=== PATIENT | male | born 1940 | race Caucasian/White ===

== ENCOUNTER 2025-03-24 03:03 | Observation (INO) | payer MEDICARE, SELFPAY ==
[2025-03-24] VITALS (7 sets, daily range): BP systolic 125–164; BP diastolic 68–92; BMI 31.1; BMI 30.6
[2025-03-24 01:15] LABS: Hematocrit 44.4 % (39.0-52.0); Hemoglobin 14.7 g/dL (13.0-18.0); Mean Corp Hgb Conc. 33.1 g/dL (33.0-37.0); Mean Corpuscular Volume 85.1 fL (80.0-94.0); Nucleated Red Blood Cells % 0 % (-); Platelet Count 242 10^3/uL (130-400); Red Cell Dist. Width 13.1 % (11.5-14.5)
[2025-03-24 01:44] LABS: Troponin I 0.013 ng/ml
[2025-03-24 01:46] LABS: ALT (SGPT) 22 U/L (0-50); AST (SGOT) 26 U/L (17-59); Albumin 4.3 g/dl (3.5-5.0); Alkaline Phosphatase 71 U/L (38-126); Blood Urea Nitrogen 20 mg/dl (9-20); Calcium 9.8 mg/dl (8.4-10.2); Carbon Dioxide 23 mmol/L (22-30); Chloride 104 mmol/L (98-107); Estimated Creatinine Clearance 65 ml/min; Glucose 142 mg/dl (70-99); Potassium 4.2 mmol/L (3.5-5.1); Sodium 135 mmol/L (135-145); Total Protein 7.0 g/dl (6.3-8.2); eGFR > 60.00
--- NOTE | 2025-03-24 01:55 | ED.GENMED ---
History of Present Illness
General
Chief Complaint: Heart Rate Problem
Source: patient, spouse and family
Exam Limitations: none
Time Seen by Provider: 03/24/25 01:10
Nursing documentation reviewed up to this point in time: agreed with
History of Present Illness
History of Present Illness:
Note:
CHIEF COMPLAINT(S)
Atrial fibrillation and abdominal pain.
HISTORY OF PRESENT ILLNESS
An 84-year-old male presented to the emergency department with a known history of atrial fibrillation. The patient reported a sensation of illness in his stomach and described feeling abnormal. He is not currently on any anticoagulant therapy, such
as Apixaban or Rivaroxaban, which are standard in managing atrial fibrillation to prevent thromboembolic events. The patient cannot recall the duration of his current atrial fibrillation episode and mentioned having previously undergone electrical
cardioversion about nine years ago. The absence of anticoagulation and the uncertainty regarding the onset of this episode raise concerns about the potential presence of a thrombus formation in the heart.
In addition to the atrial fibrillation, the patient reported abdominal pain that began immediately after consuming clams with spaghetti. The abdominal discomfort was described as significant, prompting further investigation.
PAST MEDICAL AND SURIGICAL HISTORY
The patient no longer has a gallbladder.
CHRONIC MEDICAL CONDITIONS SIGNIFICANTLY AFFECTING CARE
Atrial fibrillation.
PLAN
1. Admit the patient for further evaluation and management.
2. Perform a transesophageal echocardiogram (INA) to evaluate for the presence of intracardiac thrombi.
3. Initiate anticoagulation therapy following INA results and potential cardioversion if no thrombus is found.
4. Conduct blood work and imaging to investigate the cause of abdominal pain.
5. Test for influenza and COVID-19 due to associated respiratory symptoms.
6. Prepare the patient for an overnight stay with discharge contingent on procedural outcomes and holiday staffing schedules.
DIFFERENTIAL DIAGNOSIS
The Differential Diagnosis includes, in no particular order and is not limited to:
1. Thromboembolism secondary to atrial fibrillation
2. Gallstones in bile ducts
3. Acute gastritis from recent dietary intake
4. Food poisoning
5. Gastroenteritis
6. Viral upper respiratory infection
7. COVID-19
8. Peptic ulcer disease
9. Biliary colic
10. Pancreatitis
REVIEW OF SYSTEMS
- Cardiovascular: Atrial fibrillation, not on anticoagulation.
- Gastrointestinal: Abdominal pain following seafood ingestion.
- Respiratory: Sore throat and body aches.
PHYSICAL EXAM
General: Alert, no acute distress.
Skin: Warm, dry.
Head: Normocephalic, atraumatic.
Neck: Supple, trachea midline.
Eye, ears, nose, mouth, and throat: Oral mucosa moist.
Cardiovascular: Normal peripheral perfusion, No edema. Irregularly irregular rate and rhythm consistent.
Respiratory: Respirations are non-labored.
Gastrointestinal: Abdomen nondistended. Slight tenderness to palpation in the epigastric region
Back: Normal range of motion, Normal alignment.
Musculoskeletal: Normal ROM, normal strength.
Neurological: Alert and oriented to person, place, time, and situation, No focal neurological deficit observed.
Psychiatric: Cooperative, appropriate mood & affect.
Disposition:
SUMMARY OF ENCOUNTER
An 84-year-old male with a known history of atrial fibrillation (AF) presented to the emergency department with complaints of palpitations. The patient is visiting from [place] and is unsure when his current episode of AF began. The patient is not
on anticoagulant therapy but is currently taking verapamil. Given the absence of anticoagulation and uncertainty about the onset of this episode, there is a concern for potential thrombus formation. The patient will be admitted for further
evaluation, including a potential transesophageal echocardiogram (INA) and cardioversion, as needed.
DISPOSITION
Admit.
ASSESSMENT
The patient is experiencing symptoms of atrial fibrillation without anticoagulation, raising concerns about thromboembolic risks. Further evaluation and management in the hospital setting are justified.
PLAN
1. Admit the patient for further evaluation and management.
2. Consider performing a transesophageal echocardiogram (INA) to evaluate for intracardiac thrombi.
3. Initiate anticoagulation therapy following INA results and consider cardioversion if no thrombus is detected.
4. Further work-up and management will be conducted during hospitalization.
MEDICAL DECISION MAKING
-Chronic conditions affecting care: Atrial fibrillation.
-Data:
Category 1
Outpatient medication records indicate usage of verapamil.
-Risk:
Decisions regarding the initiation of anticoagulation therapy were made, considering the potential thromboembolic complications associated with atrial fibrillation. The decision to admit the patient for further evaluation and potential procedures
like INA and cardioversion represents an escalation of care.
DIAGNOSIS
1. Atrial Fibrillation [I48.91]
Phy Exam
Physical Exam
Physical Exam:
.
Course
Orders/Labs/Results
Orders:
Orders
03/24/25 00:39
ECG [Electrocardiogram (*1)] Urgent
Reason for Study: Palpitations
EKG- Treatment ONCE
03/24/25 01:02
Complete Blood Count/With Diff Urgent
Comprehensive Metabolic Panel Urgent
Troponin I Urgent
03/24/25 01:36
COVID-19 Antigen Urgent
Source: Nasal Swab
Influenza A+B Rapid Molecular Urgent
SUPA Source: Nasal Swab
Specimen Description:
03/24/25 02:55
Admit/Transfer Patient As Directed
Co-Sign Provider:
Level of Care: Observation services
Assign to:: Telemetry
Physician / Group: Stan
Diagnosis: atrial fibrillation
Reason for Telemetry: Medication for Arrhythmia
Date to Stop Telemetry: 03/26/25
Time to Stop Telemetry: 11:00
Code Status As Directed
Resuscitation Status: Full Code
PRN Pain Medication Management As Directed
May give lesser potent ordered pain med per pt: Yes
preference::
Protocol:: Medication orders for pain may be administered in a
manner that supports deferring to patient preference
when the pt is:
- Requesting an ordered lesser potent pain medication.
Least to most potent pain medications are defined
as: acetaminophen < NSAID < tramadol < opioids
(morphine, oxycodone, hydromorphone).
- Requesting a lesser dose of the same medication IF
ORDERED.
- Requesting a less intrusive route of administration
if both routes are prescribed by the provider (PO <
IV).
03/24/25 04:05
Acetaminophen [Tylenol] 650 mg PO Q6HPRN PRN
Metoprolol [Lopressor] 5 mg IV Q6HPRN PRN
Ondansetron Injectable [Zofran] 4 mg IV Q6HPRN PRN
03/24/25 04:05
Echo 2D MMode Color/Doppler Routine
Reason for Study: heart failure
CARDIOLOGY CONSULT Routine
Consulting Provider: Fito Suggs
Was physician already notified: No
Reason for consult: symptomatic afib, not rapid
Consult Notification Routine
Specialty to Notify: Cardiology
Date consulting provider notified: 03/24/25
Time consulting provider notified: 07:47
Notified:: Provider
Comment: tt
VTE Contraindication Routine
VTE Mechanical Device Contraindication: Medical Contraindication
Pharmocologic Contraindication: Medical Contraindication
Activity As Directed
Activity Level: With Assistance
Intake/ Output As Directed
Frequency: Per unit guidelines
Patient Education As Directed
Type: CHF folder
Comment: give on admission. Document in Interdisciplinary Education record
Sleep Apnea Assessment by RN As Directed
Comment:
Physician Instructions:
Vital Signs As Directed
Frequency: Other
Additional Instructions:: Q12 or per unit guidelines if more frequent.
Weight As Directed
Frequency: Daily
Type of Scale: Standing Scale
Comment: Daily morning weight. If unable to stand, use balanced bed scale.
Weight As Directed
Frequency: Once
Type of Scale: Standing Scale
Comment: Upon Admission. If unable to stand, use balanced bed scale.
CR Chest - 2 Views Routine
Comment:
Reason For Exam: afib
Pulse Ox/cont/shift [RESP] Routine
Quantity: 1
Special Instructions: Daily pulse oximetry at rest. If greater than 92% at rest also obtain pulse oximetry
while ambulating as tolerated.
03/24/25 Breakfast
Cholesterol Lowering
At Your Request: Full Participation
Does patient need a safe tray?: No
Cholesterol Lowering: Sodium, 2 Gram
03/24/25 08:00
Apixaban [Eliquis] 5 mg PO BID
Bupropion Regular Release [Wellbutrin Regular Release] 150 mg PO DAILY
Verapamil [Calan] 120 mg PO DAILY
03/24/25 08:27
Basic Metabolic Panel IN AM
Cardiovascular Evaluation IN AM
Magnesium IN AM
NT-proBNP IN AM
TSH Reflex To Free T4 IN AM
03/26/25 11:00
DC Protocol for Telemetry ONCE
Abnormal Lab Results
03/24/25
01:02
Abs Immat Gran (auto) 0.1 H 10^3/uL
(0-0.05)
Absolute Neuts (auto) 9.0 H 10^3/uL
(1.4-6.5)
Absolute Lymphs (auto) 0.5 L 10^3/uL
(1.2-3.4)
Absolute Monos (auto) 1.1 H 10^3/uL
(0.1-0.6)
Neutrophils % 83.7 H %
(42.2-75.2)
Lymphocytes % 4.6 L %
(20.5-51.1)
Monocytes % 9.9 H %
(1.7-9.3)
Glucose 142 H mg/dl
(70-99)
03/24/25 01:02
03/24/25 01:02
Vital Signs
Initial and Last Documented VS:
Initial Vital Signs
Temp Pulse Resp BP Pulse Ox
98.7 F 92 20 159/88 96
03/24/25 00:36 03/24/25 00:36 03/24/25 00:36 03/24/25 00:36 03/24/25 00:36
Last Documented Vital Signs
Temp Pulse Resp BP Pulse Ox
99.4 F 62 16 133/68 95
03/24/25 11:55 03/24/25 11:55 03/24/25 11:55 03/24/25 11:55 03/24/25 12:57
*Pulse Oximetry
SaO2: 95
Oxygen Mode of Delivery: Room air
Patient hypoxic: no
*Critical Care Note
Total Time (30-74mins, 75-104mins- exclusive of procedures): Not Applicable
ED Attending Note
-
Portions of this chart may have been created with voice recognition software.� Occasional wrong word or��sound alike� substitutions may have occurred due to the inherent limitations of voice recognition software.
Discharge Plan
Departure
Patient Disposition: Admit
Date of Disposition: 03/24/25
Time of Disposition: 02:00
Admit to: Telemetry
Presentation/result/management discussed w/ accepting MD/DO: Hospitalist
Condition: Fair
Discharge Problem:
A-fib, Palpitations
Interventions
Interventions:
*General Assessment Last Done: 03/24/25 00:58
*Neglect/Abuse Screening Last Done: 03/24/25 00:36
*ED COVID-19 Vaccine History Last Done: 03/24/25 00:58
*ED Influenza Vaccine History Last Done: 03/24/25 00:58
[facility] Risk Assessment Tool Last Done: 03/24/25 00:57
*Risk Screen - Suicide (C-SSRS) Last Done: 03/24/25 00:59
*Nursing Disposition Last Done: 03/24/25 04:11
ED- Cardiac Assessment Last Done: 03/24/25 00:59
ED- Pulmonary Assessment Last Done: 03/24/25 00:59
Discharge Date and Time
Discharge Date/Time: 03/24/25 04:11
[2025-03-24 02:00] LABS: COVID-19 Antigen Negative (Negative)
--- NOTE | 2025-03-24 02:45 | HPS.HSE ---
Family Physician
-
Family Physician: * NONE
Chief Complaint
-
Her palpitations
History of Present Illness
Patient is a 84-year-old male with past medical history significant for possible atrial fibrillation, BPH status post TURP and anxiety who presents to the emergency department with sensation of palpitations since lunchtime yesterday.
Patient reported that for about the last 24 hours he has not been feeling quite well. After lunch he reports some abdominal pain and nausea. At around the same time started noticing palpitations which is similar to his prior episodes of
palpitations when he was found to be in atrial fibrillation. He thought he is now come back into atrial fibrillation. Patient reported that the last time he was in atrial fibrillation was 8 years ago. At that time he required cardioversion. He
has been on verapamil but is not on any anticoagulation. He denies any episodes of palpitations since then. He says the palpitations now when not as violent as the one that he had previously. He denies any associated lightheadedness or dizziness.
He does report mild dyspnea and chest pain. He reports some mild flulike illness as well but no fevers or chills. He denies any cough. Denies any nasal congestion. He reports compliance with his medications. When he checked his pulse at home
with the palpitations his rate was in the 90s. He denies any urinary symptoms.
In the emergency department he was afebrile, blood pressure was 160/92 with a pulse rate of 94 and oxygen saturation of 98% on room air. ECG shows atrial fibrillation at a rate of 94. Troponin was 0.013. COVID test was negative, flu test was
negative.
White count was 10.8 hemoglobin and platelets were normal. Electrolytes BUN/creatinine were normal.
Medical History
Past Medical History
Past Medical History: Reports Arrhythmia (Status post elevation), Psychiatric and Other (BPH status post TURP)
Past Surgical History: Reports Appendectomy, Cholecystectomy and Urological (TURP)
Social History
Tobacco: Non-smoker
Alcohol: None
Drug: None
Personal:
Living: With Family
Family History
Family History: Not pertinent
Allergies / Home Medications
Allergies reflects when Allergies were last updated in [facility].
Home Medications with original date entered in [facility]
Allergy/Medication List:
Allergies
Allergy/AdvReac Type Severity Reaction Status Date / Time
No Known Allergies Allergy Unverified 03/24/25 00:36
Home Medications
bupropion HCl 75 mg tablet 150 mg PO DAILY 03/24/25
verapamil 120 mg tablet 120 mg PO DAILY 03/24/25
Review of Systems
-
Constitutional: Reports No Symptoms
EENT: Reports No Symptoms
Respiratory: Reports No Symptoms
Cardiac: Reports Palpitations
Abdomen/GI: Reports No Symptoms
: Reports No Symptoms
Musculoskeletal: Reports No Symptoms
Skin: Reports No Symptoms
Neurological: Reports No Symptoms
Endocrine: Reports No Symptoms
Hematologic/Lymphatic: Reports No Symptoms
Psych: Reports No Symptoms
Physical Exam
Vital Signs
Vital Signs
Temp Pulse Resp BP Pulse Ox
98.7 F 92 24 137/85 94
03/24/25 00:36 03/24/25 02:30 03/24/25 02:30 03/24/25 02:00 03/24/25 02:30
Physical Exam
General: Well Developed, Well Nourished and No Apparent Distress
HEENT: NormoCephalic, Moist mucous membranes and Atraumatic
Respiratory: Clear
Cardiac: S1/S2 and Regular Rhythm; No Murmur or Rub
GI: Soft, Non Tender, Non Distended and Normal Bowel Sounds; No Organomegaly
Rectal: Deferred by Provider
Musculoskeletal: No Clubbing, No Cyanosis and No Edema
Skin: No Rash
Neuro: Nonfocal/grossly intact
Laboratory Results
-
03/24/25 01:02
03/24/25 01:02
Laboratory Results
Total Bilirubin 1.0 mg/dl (0.2-1.3) 03/24/25 01:02
AST 26 U/L (17-59) 03/24/25 01:02
ALT 22 U/L (0-50) 03/24/25 01:02
Alkaline Phosphatase 71 U/L (38-126) 03/24/25 01:02
Troponin I 0.013 ng/ml 03/24/25 01:02
Data Reviewed
-
Medical Tests (Nuc Med, Echo, EKG etc): Image Personally Visualized and interpreted
Lab Data: Labs Reviewed by me
Old Records: Reviewed
Impression/Plan
-
IMPRESSION:
84-year-old male with past medical history of prostate atrial fibrillation status post cardioversion 8 years ago and he has been in a normal sinus rhythm according to him since then maintained on verapamil daily who presents to Emergency Department
with palpitations after an episode of nausea and abdominal discomfort after lunch. He reports that he feels the palpitation with slight chest discomfort and felt like it was not normal. He denies feeling dizzy or lightheaded. He denies any chest
pain or dyspnea. He reports that in the past when he had the atrial fibrillation on it was rapid in the 130s to 140s and required cardioversion after 3 days in the hospital on medications. He is not currently anticoagulated and has never been on
anticoagulation according to him.
PLAN:
Atrial fibrillation�patient in A-fib not rapid. But symptomatic. It appears that patient is usually in sinus rhythm and cannot feel when he is in A-fib even though the rate is less than 100. He is otherwise hemodynamically stable, afebrile, has
normal troponin and no signs of ischemia on his ECG. He is slightly hypertensive. Labs are unremarkable.
� Admit to telemetry observation
� Patient CHADS2 score is 2, missed criteria for anticoagulation
� Given that the patient has not been on anticoagulation, very reluctant to statin medication that we will convert him therefore we will continue with therapy for now since he is rate controlled
� Will start anticoagulation with Eliquis and monitor
� Echocardiogram in a.m.
� Continue verapamil as stated above
� Cardiology consultation
� DVT prophylaxis�on apixaban now
� CODE STATUS full code
--- NOTE | 2025-03-24 04:20 | PTCARENOTE ---
Pt arrived to room 416-01 from ED, ambulates independently. VSS, AAOx3, call travis in reach.
--- NOTE | 2025-03-24 08:08 | CON.CAR ---
Addendum entered and electronically signed by Fito Suggs MD 03/24/25 09:41:
I saw and examined the patient.
The Deputy Chief Counsel's note was reviewed and I agree with the note.
Comment: Briefly, 84-year-old man with remote history of atrial fibrillation who presented yesterday with palpitations found to be in rate controlled atrial fibrillation. Patient is not chronically on anticoagulation has not followed regularly with
a service planner. Currently visiting his daughter in [place] but usually splits his time between [place] and [place].
Overall tells me he feels well today
A-fib/flutter is rate controlled on review of telemetry
No evidence of decompensated heart failure based on history or physical exam
Agree with discharge on Eliquis for risk reduction cardioembolic stroke
Would increase home verapamil to 120 mg twice daily for tighter rate control of A-fib
For completeness we will check echo
Tentative plan for discharge later today
Encouraged him to follow-up with his primary care doctor on his return to [place] and establish with a service planner there as well
Original Note:
Consultation
Consultation Request
Date/Time Consultation Requested: 03/24/2025
Date/Time Consultation Performed: 03/24/2025
Requesting Provider: Dr. Pierce
Performing Provider: Shireen Arciniega PA-C for Dr. Suggs
Reason for Consultation: Atrial fibrillation
Medical History
-
History of Present Illness:
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
palpitations and nausea/abdominal pain. Patient reports he is visiting his daughter locally from [place]. Several days ago he started noting URI symptoms with postnasal drip and cough. Yesterday he had spaghetti with clams for and later that
evening he started to feel queasy with mild abdominal pain. Last evening when he went to bed he noted palpitations reminiscent of his prior atrial fibrillation so he decided to come to emergency department. Patient has history of paroxysmal atrial
fibrillation and had prior cardioversion 9 years ago. He reports he does not routinely follow with service planner. He reports he is not on anticoagulation as outpatient. EKG showed atrial fibrillation/flutter with controlled ventricular response.
Troponin was negative. He was COVID and flu negative. He was initiated on anticoagulation with Eliquis.
At time of this evaluation he continues to have some mild nausea and intermittent palpitations. He denies chest pain, shortness of breath, dizziness or lightheadedness. Still has cough with some postnasal drip.
PMH:
Paroxysmal atrial fibrillation with remote cardioversion years ago
BPH status post TURP
Anxiety
Past Medical History
Past Medical History: Other (see HPI)
Past Surgical History: Appendectomy, Cholecystectomy, Orthopedic (Right knee replacement, bilateral shoulder surgeries) and Urological (Multiple surgeries on prostate/TURP)
Social History
Tobacco: Non-Smoker
Alcohol: None
Drug: None
Personal:
Living: With Family
Employment: Retired
Family History
Family History: Reviewed & Not Pertinent
Allergies / Home Medications
Allergy/AdvReac Type Severity Reaction Status Date / Time
No Known Allergies Allergy Unverified 03/24/25 00:36
�Medication �Instructions �Recorded �Confirmed �Type
bupropion HCl 75 mg tablet 150 mg PO DAILY 03/24/25 03/24/25 History
verapamil 120 mg tablet 120 mg PO DAILY 03/24/25 03/24/25 History
Review of Systems
-
History Source: Patient
All other systems: Negative unless noted
Physical Exam
Vital Signs
GEN: No distress, awake, Ox3
HEENT: supple, anicteric, mmm
LUNGS: CTA, no wheezes/rales; on room air with cough
CV: Irregularly irregular, rate controlled, S1/S2, no murmur, rub or gallop
ABD: soft, BS+, NT/ND
EXT: No edema, clubbing or cyanosis
NEURO: Gross non-focal
SKIN: No rash, warm, dry,
Temp Pulse Resp BP Pulse Ox
99.9 F 99 18 125/87 95
03/24/25 07:20 03/24/25 07:20 03/24/25 07:20 03/24/25 07:20 03/24/25 07:20
Lab Results
03/24/25 01:02
Troponin I 0.013 ng/ml 03/24/25 01:02
Impression / Plan
-
PCP: Unknown, lives in [place]
Technician Chemical Cleaning: None, initial consult Dr. Suggs
Impression:
Presented 03/24/2025 with nausea, palpitations and cough
Paroxysmal atrial fibrillation, unknown duration
Nausea
Paroxysmal atrial fibrillation with remote cardioversion 9 years ago
BPH status post TURP
Anxiety
Echocardiogram 03/24/2025: Ordered
Plan:
-Presented 03/24/2025 with nausea, palpitations and cough
- Found to be in paroxysmal atrial fibrillation, unknown duration on admission. Repeat EKG this a.m. continues to show atrial fibrillation/flutter with controlled ventricular response.
- Has history of remote atrial fibrillation in past. Not on anticoagulation prior to admission. Agreed to initiated on Eliquis 5 mg twice a day
- Was on verapamil 120 mg daily prior to admission. Will increase to 120 mg twice daily for rate control. However if ejection fraction found to be reduced on echo then would transition to metoprolol
- Check echocardiogram
- Chest x-ray and proBNP pending. Although patient does not appear to have acute heart failure on examination
- Discussed option with patient for consideration of INA/cardioversion this admission versus rate control with initiation of anticoagulation and outpatient cardioversion in 3 to 4 weeks. Given patient is rate controlled and he feels well he prefers
to be discharged.
- Nausea after eating spaghetti and clams. Denies vomiting. Conservative management, defer to primary service
HPI 03/24/2025:
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
palpitations and nausea/abdominal pain. Patient reports he is visiting his daughter locally from [place]. Several days ago he started noting URI symptoms with postnasal drip and cough. Yesterday he had spaghetti with clams for and later that
evening he started to feel queasy with mild abdominal pain. Last evening when he went to bed he noted palpitations reminiscent of his prior atrial fibrillation so he decided to come to emergency department. Patient has history of paroxysmal atrial
fibrillation and had prior cardioversion 9 years ago. He reports he does not routinely follow with service planner. He reports he is not on anticoagulation as outpatient. EKG showed atrial fibrillation/flutter with controlled ventricular response.
Troponin was negative. He was COVID and flu negative. He was initiated on anticoagulation with Eliquis.
At time of this evaluation he continues to have some mild nausea and intermittent palpitations. He denies chest pain, shortness of breath, dizziness or lightheadedness. Still has cough with some postnasal drip.
Data Reviewed
-
EKG: Report Reviewed by me, Discussed with Physician, Discussed with Nurse and Discussed with Patient
Labs: Labs Reviewed by me, Discussed with Physician, Discussed with Nurse and Discussed with Patient
[2025-03-24] MEDS: ELIQUIS 5 MG PO (08:33)
[2025-03-24] MEDS: CALAN 120 MG PO (08:33)
[2025-03-24] MEDS: WELLBUTRIN REGULAR RELEASE 150 MG PO (08:33)
[2025-03-24 09:34] LABS: Blood Urea Nitrogen 18 mg/dl (9-20); Calcium 9.3 mg/dl (8.4-10.2); Carbon Dioxide 25 mmol/L (22-30); Chloride 100 mmol/L (98-107); Estimated Creatinine Clearance 59 ml/min; Glucose 119 mg/dl (70-99); HDL Cholesterol 45 mg/dl; LDL Cholesterol, Calculated 77 mg/dl; Magnesium 2.0 mg/dl (1.6-2.3); Potassium 4.1 mmol/L (3.5-5.1); Sodium 134 mmol/L (135-145); Very Low Density Lipoprotein 8 mg/dl (0-30); eGFR > 60.00
--- NOTE | 2025-03-24 11:38 | W.PN.HOSP.TC ---
Addendum entered and electronically signed by Myke Levine MD 03/24/25 12:52:
Discussed with cardiology. Echo without acute abnormality. Patient is feeling better. Will discharge patient with Eliquis and increased dose of verapamil.
Time of discharge 37 minutes
Original Note:
Today's Communication/Plan
-
monitor vitals
see plan
Cardiology following
Echocardiogram pending
Increase verapamil
Eliquis
Potential discharge today
Nonbillable note
Assessment / Plan
Assessment / Plan
General: Well Developed, Well Nourished and No Apparent Distress
HEENT: NormoCephalic, Moist mucous membranes and Atraumatic
Respiratory: Clear
Cardiac: S1/S2 and irregular Rhythm
GI: Soft, Non Tender, Non Distended
Musculoskeletal: No Edema
Neuro: Nonfocal/grossly intact
Atrial fibrillation�patient in A-fib not rapid. But symptomatic. It appears that patient is usually in sinus rhythm and cannot feel when he is in A-fib even though the rate is less than 100.
Per patient history approximator fibrillation, he is not sure why he is not on anticoagulation
Started on Eliquis, cardiology agrees
Echocardiogram
Increase verapamil per cardiology recommendation
Cardiology following
TSH low however normal free T4
Mild hyponatremia
Monitor
History of BPH status post TURP
� DVT prophylaxis�on apixaban
� CODE STATUS full code
Anticipated Discharge: Today
Subjective/Interval History
-
Date of Service: March 24, 2025
Denies chest pain
Objective Data
-
Labs:
Laboratory Results
03/24/25 03/24/25
01:02 08:27
WBC 10.8
Hgb 14.7
Hct 44.4
Plt Count 242
Sodium 135 134 L
Potassium 4.2 4.1
Chloride 104 100
Carbon Dioxide 23 25
BUN 20 18
Creatinine 1.0 1.1
Glucose 142 H 119 H
Calcium 9.8 9.3
Total Bilirubin 1.0
AST 26
ALT 22
Alkaline Phosphatase 71
Vital Signs:
Vital Signs
Temp Pulse Resp BP Pulse Ox
99.9 F 99 18 125/87 95
03/24/25 07:20 03/24/25 08:33 03/24/25 07:20 03/24/25 08:33 03/24/25 07:20
--- NOTE | 2025-03-24 12:59 | W.DCSUMMARY ---
Discharge Summary
Discharge Data
Date of Admission: 03/24/25
Date of Discharge: 03/24/25
-
Pending Results: No
Hospital Course
84-year-old male with past medical history of paroxysmal atrial fibrillation, BPH status post TURP came to the hospital with palpitation known to be in atrial fibrillation. Patient heart rate was controlled throughout hospitalization. He was seen
by cardiology and his verapamil was increased to 120 mg twice daily. Echocardiogram was done which showed preserved EF and no new wall motion abnormality. Patient symptoms continue to improve over time and he was discharged home with instructions
to follow-up closely with PCP and cardiology outpatient.
Discharge Plan
-
Patient Disposition: Home (Routine Discharge)
Discharge Diagnosis/Procedures: Atrial fibrillation
Mild hyponatremia
Condition: Fair
Diet: As tolerated
Activity: As tolerated
Driving Restrictions: As prior to admission
Bathing Restrictions: None
Activity Restrictions/Additional Instructions:
Follow-up with your production engineer track outpatient
Referrals:
Fito Suggs MD [Active, Cardiology]
NONE,* [Family Provider, Internal Medicine] - in less than 1 week
Prescriptions:
New
Eliquis 5 mg Tablet
5 mg PO BID Qty: 60 0RF
Continued
bupropion HCl 75 mg tablet
150 mg PO DAILY
Changed
verapamil 120 mg tablet
120 mg PO BID Qty: 60 0RF
Discharge Orders:
Discharge Patient (As Directed); Ordered 03/24/25
Ordered By: Myke Levine
Discharge Date and Time
Discharge Date/Time: 03/24/25 15:20
Print Language: ANGOLAN
--- NOTE | 2025-03-24 14:54 | CM ---
CM reviewed chart, patient seen bedside.
Patient is a 84-year-old male with past medical history significant for possible atrial fibrillation, BPH status post TURP and anxiety who presents to the emergency department with sensation of palpitations since lunchtime yesterday.
Patient visiting from [place], staying with son.
CM spoke with sales solutions representative from [employer] for Eliquis pricing- 5mg PO BID, 30 day supply $184.
Update to patient- provided with Eliquis coupons.
Son to transport home.
MCGARRY form verbally, provided with copy, placed in chart.
CM will continue to follow for all d/c needs.
Plan; home no needs, given Eliquis coupon
== END 2025-03-24 15:20 | disposition home or self-care (01) ==
LOC: 4 WEST ACU 03:03
PROVIDERS: Emergency Medicine; ADMITTING PHYSICIAN Internal Medicine; ATTENDING PHYSICIAN Internal Medicine; CONSULT PHYSICIAN Internal Medicine Cardiovascular Disease; EMERGENCY PHYSICIAN Student in an Organized Health Care Education/Training Program
DX: I48.0 Paroxysmal atrial fibrillation (principal); R10.9 Unspecified abdominal pain; I10 Essential (primary) hypertension; R00.2 Palpitations; N40.0 Benign prostatic hyperplasia without lower urinary tract symptoms; F41.9 Anxiety disorder, unspecified; I48.92 Unspecified atrial flutter; I08.3 Combined rheumatic disorders of mitral, aortic and tricuspid valves; E87.1 Hypo-osmolality and hyponatremia; R09.82 Postnasal drip; R05.9 Cough, unspecified; Z90.49 Acquired absence of other specified parts of digestive tract; Z90.79 Acquired absence of other genital organ(s); Z79.899 Other long term (current) drug therapy; Z11.52 Encounter for screening for COVID-19; Z60.2 Problems related to living alone; Z96.651 Presence of right artificial knee joint; Z96.612 Presence of left artificial shoulder joint; Z96.611 Presence of right artificial shoulder joint
CPT/HCPCS: 71046; 80048; 80053; 80061; 83735; 83880; 84439; 84443; 84484; 85025; 87502; 87811; 93005; 93306; 99285; G0378